=== PATIENT | female | born 1960 | race Caucasian/White ===

== ENCOUNTER 2019-12-06 04:10 | Outpatient (CLI) | payer SELFPAY | END 2019-12-06 04:11 | disposition EMS.NT | LOC: EMS 04:10 | PROVIDERS: ATTEND Surgery | DX: R06.00 Dyspnea, unspecified (principal) ==

== ENCOUNTER 2022-02-24 08:00 | Outpatient (CLI) | payer BC ==
--- NOTE | 2022-02-24 19:08 | XRAY Report ---
PROCEDURE: Thoracic Spine 2 View INDICATIONS: THORACIC BACK PAIN, RIGHT SIDED TECHNIQUE: 2 views of the thoracic spine were acquired. COMPARISON: None. FINDINGS: Bones: No fractures or dislocations. No suspicious bony lesions. 12 pairs of ribs are noted, and a ppear intact where visualized. Soft tissues: No paravertebral stripe thickening. IMPRESSION: No evidence acute bony abnormality of the thoracic spine. If clinical suspicion and/or symptoms persist, further assessment with repeat plain films or advanced imaging (e.g., CT, MRI, or bone scan) may be helpful for further assessment. Reviewed by: Minh Hobson MD on 02/24/2022 7:07 PM PDT Approved by: Minh Hobson MD on 02/24/2022 7:07 PM PDT Station ID: [id number]
== END 2022-02-24 23:59 | disposition home or self-care (01) ==
LOC: DI.S 08:00
PROVIDERS: ATTEND Physician Assistant
DX: M54.6 Pain in thoracic spine (principal)

== ENCOUNTER 2024-05-04 08:00 | Outpatient (CLI) | payer BC ==
--- NOTE | 2024-05-04 14:00 | XRAY Report ---
PROCEDURE: Ribs w/PA Chest 3+V RT INDICATIONS: THORACIC BACK MUSCLE SPASM TECHNIQUE: 3 views of the ribs were acquired, along with a single view chest. COMPARISON: None. FINDINGS: Surgical changes and devices: None. Bones and chest wall: No acute displaced rib fracture. No suspicious bony lesions. Overlying soft tissues appear unremarkable. Lungs and pleura: No pleural effusions or pneumothorax. Lungs appear clear. Mediastinum: Mediastinal contours appear normal. Heart size is normal. IMPRESSION: No acute displaced rib fracture or pneumothorax. Reviewed by: Sang Rodriguez MD on 05/04/2024 1:59 PM PDT Approved by: Sang Rodriguez MD on 05/04/2024 1:59 PM PDT Station ID: [id number]
--- NOTE | 2024-05-04 14:01 | XRAY Report ---
PROCEDURE: Thoracic Spine 2V INDICATIONS: THORACIC BACK MUSCLE SPASM TECHNIQUE: 2 views of the thoracic spine were acquired. COMPARISON: Thoracic spine radiographs 02/24/2022 FINDINGS: Bones: No acute fractures or dislocations. No suspicious bony lesions. 12 pairs of ribs are noted, and appear intact where visualized. Soft tissues: No paravertebral stripe thickening. IMPRESSION: No acute bony abnormality. No significant degenerative change. Reviewed by: Sang Rodriguez MD on 05/04/2024 2:00 PM PDT Approved by: Sang Rodriguez MD on 05/04/2024 2:00 PM PDT Station ID: [id number]
== END 2024-05-04 23:59 | disposition home or self-care (01) ==
LOC: DI.S 08:00
PROVIDERS: ATTEND Emergency Medicine
DX: M62.830 Muscle spasm of back (principal)

== ENCOUNTER 2024-05-11 15:46 | Outpatient (CLI) | payer BC ==
[2024-05-11] MEDS ORDERED: DIATRIZOATE MEGLU/DIATRIZO SOD 30 ML BOTTLE PO ONE (15:52)
[2024-05-11] MEDS ORDERED: iohexoL-300 100 ML VIAL ONE (15:52)
[2024-05-11] MEDS: iohexoL-300 100 ML VIAL IVP ONE (19:10)
[2024-05-11] MEDS: DIATRIZOATE MEGLU/DIATRIZO SOD 30 ML BOTTLE PO ONE (19:10)
--- NOTE | 2024-05-14 13:16 | CT Report ---
PROCEDURE: Abdomen/Pelvis W INDICATIONS: CLL CONTRAST: 100ml omni 300 TECHNIQUE: After the administration of intravenous contrast, a CT scan of the abdomen and pelvis was performed. Images were recorded and evaluated at appropriate window settings. Reformats: coronal and sagittal. F or radiation dose reduction, the following was used: automated exposure control, adjustment of mA and /or kV according to patient size. COMPARISON: No relevant comparisons available at time of dictation. FINDINGS: Image quality: Diagnostic. Lower chest: Small hiatal hernia. Liver: Focus of peripheral, wedge-shaped hyperattenuation in segment 7, probably a vascular shunt. Gallbladder: Cholelithiasis without wall thickening. Biliary tree: No intrahepatic or extrahepatic dilation, accounting for age. Spleen: No splenomegaly. Pancreas: No pancreatic ductal dilation. Adrenals: No adrenal nodule. Kidneys and ureters: No hydronephrosis. No renal cystic lesion which requires follow up. No solid mas s. Stomach, bowel and peritoneum: No gastric or small bowel dilation. No abnormal wall thickening. No pa thologic free fluid. Normal appendix. Lymph nodes: Retroperitoneal adenopathy. Index nodule measures 1.9 x 1.3 cm in the lower periaortic s tation (series 2, image 51). Vessels: No infrarenal aortic aneurysm. Patent portal vein. PELVIS Reproductive organs: Subserosal fibroid at the fundus measuring 3.1 cm.. Bladder: No abnormal wall thickening, accounting for underdistention. Pelvic lymph nodes: Pelvic and inguinal adenopathy. Index nodules: -1.3 x 2.2 cm right external iliac chain node (series 2, image 76) -2.0 x 1.4 cm left external iliac chain node (series 2, image 79) -1.7 x 1.2 cm left inguinal chain node (series 2, image 93). Bones: No aggressive osseous abnormality. Other: No significant ventral or inguinal hernia. IMPRESSION: Note: No relevant comparisons available at time of dictation. Retroperitoneal, pelvic and inguinal adenopathy, with index nodules as above. Reviewed by: Viktor Wang MD on 05/14/2024 1:15 PM PDT Approved by: Viktor Wang MD on 05/14/2024 1:15 PM PDT Station ID: [id number]
--- NOTE | 2024-05-14 17:12 | CT Report ---
PROCEDURE: Chest W INDICATIONS: CLL CONTRAST: 100ml omni 300 TECHNIQUE: After the administration of intravenous contrast, a CT scan of the chest was performed. Images were recorded and evaluated at appropriate window settings. Reformats: axial MIP of the chest, coronal and sagittal. For radiation dose reduction, the following was used: automated exposure control, adjustme nt of mA and/or kV according to patient size. COMPARISON: No relevant comparisons available at time of dictation. FINDINGS: Image quality: Diagnostic. Chest wall and lower neck: No thyroid nodule which requires sonographic follow up. No asymmetric left breast tissue. Supraclavicular adenopathy. Index nodule is in the left supraglottic gestation measur ing 1.3 x 1.8 cm (series 2, image 6). Enlarged bilateral axillary chain nodes. Index nodule is left l evel 1 node measuring 1.7 x 2.4 cm. Lungs and pleura: No consolidation. No pleural effusions. No pneumothorax. No suspicious pulmonary n odules which require follow up. Mediastinum: Heart size is normal. No pericardial effusion. No large vessel abnormality. No mediastin al adenopathy by size criteria. Bones: No aggressive osseous abnormality. Upper Abdomen: Separately dictated. IMPRESSION: Note: No relevant comparisons available at time of dictation. Supraclavicular and axillary adenopathy. Index nodules above. Asymmetric left breast tissue. Recommend further workup at a diagnostic breast center, if not up-to-d ate on screening mammography. Reviewed by: Viktor Wang MD on 05/14/2024 5:11 PM PDT Approved by: Viktor Wang MD on 05/14/2024 5:11 PM PDT Station ID: [id number]
--- NOTE | 2024-05-14 18:41 | CT Report ---
PROCEDURE: Soft Tissue Neck W INDICATIONS: CLL CONTRAST: 100ml omni 300 TECHNIQUE: After the administration of intravenous contrast, 3.0 mm axial sections acquired from the sella to th e aortic arch. Additional oblique axial 3.0 mm sections acquired through the pharynx. 3 mm thick co gokul reformats were generated. For radiation dose reduction, the following was used: automated exp osure control, adjustment of mA and/or kV according to patient size. COMPARISON: Correlation is made with the accompanying imaging. FINDINGS: Image quality: Excellent. Lymph nodes: Several enlarged lymph nodes can be seen throughout the neck. The largest can be seen wi th the left supraclavicular region, as on series 2 image 61, measuring 18 x 13 mm. Vessels: Visualiz ed vasculature appears patent. Neck spaces: The oropharynx, nasopharynx, and pharynx demonstrate no mucosal lesions. The vocal cor ds, false vocal cords, pyriform sinuses, epiglottis, vallecula, and tongue base all appear normal. E xtramucosal spaces appear unremarkable. Glands: The parotid and submandibular glands appear normal. At the inferior pole of the right thyro id, there is a focal lesion seen that measures up to 2.3 cm craniocaudal. Miscellaneous: Visualized brain and orbits appear normal. Lung apices appear clear. Superficial so ft tissues appear normal. Bones: No suspicious bony lesions. Visualized sinuses and mastoids appear unremarkable. IMPRESSION: Several enlarged cervical lymph nodes are seen. The largest can be seen within the left supraclavicul ar region. 2.3 cm right thyroid nodule incidentally noted. When clinically appropriate, please consider a follow -up thyroid ultrasound for further evaluation. Reviewed by: Walter Hanson MD on 05/14/2024 5:40 PM ELLIOTT Approved by: Walter Hanson MD on 05/14/2024 5:40 PM [email or web address] Station ID: [id number]
== END 2024-05-11 15:47 | disposition home or self-care (01) ==
LOC: DI 15:46
PROVIDERS: ATTEND Internal Medicine
DX: C91.10 Chronic lymphocytic leukemia of B-cell type not having achieved remission (principal); R59.0 Localized enlarged lymph nodes; E04.1 Nontoxic single thyroid nodule; R92.8 Other abnormal and inconclusive findings on diagnostic imaging of breast; R93.89 Abnormal findings on diagnostic imaging of other specified body structures; D25.2 Subserosal leiomyoma of uterus
CPT/HCPCS: 70491; 71260; 74177; Q9963; Q9967